=== PATIENT | female | born 1985 | race Caucasian/White ===

== ENCOUNTER 2018-08-29 19:07 | Inpatient (IN) | payer MEDICAID ==
[2018-08-29] MEDS ORDERED: LACTATED RINGER'S 1,000 ML IV (23:09)
[2018-08-29] MEDS ORDERED: METHYLERGONOVINE 0.2 MG INJ IM (23:30)
[2018-08-29] MEDS ORDERED: CARBOPROST 250 MCG INJ IM (23:30)
[2018-08-29] MEDS ORDERED: OXYTOCIN 30 UNITS/LR 500 ML IV (23:30)
[2018-08-29] MEDS ORDERED: LIDOCAINE 1% (MPF) 30 ML INJ INJ (23:30)
[2018-08-29] MEDS ORDERED: MISOPROSTOL 200 MCG TAB PR (23:30)
[2018-08-29] MEDS: LACTATED RINGER'S 1,000 ML IV (23:50)
[2018-08-30 01:19] LABS: ADD MAN DIFF? NO
[2018-08-30 01:27] LABS: BASOPHILS % 0.3 % (0.0-2.0); EOSINOPHILS # 0.1 10^3/ul (0.0-0.5); EOSINOPHILS % 1.1 % (0.0-7.0); HEMATOCRIT 38.3 % (37.0-47.0); HEMOGLOBIN 12.6 g/dl (12.0-16.0); LYMPHOCYTES # 1.9 10^3/ul (0.8-2.9); LYMPHOCYTES % 23.3 % (15.0-51.0); MEAN CORPUSCULAR HGB CONC 32.9 g/dl (32.0-37.0); MEAN CORPUSCULAR VOLUME 88.2 fl (82.0-101.0); MEAN PLATELET VOLUME 11.6 fl (7.4-10.4); MONOCYTE # 0.5 10^3/ul (0.3-0.9); MONOCYTES % 5.8 % (0.0-11.0); NEUTROPHIL # 5.5 10^3/ul (1.6-7.5); NEUTROPHILS % 68.7 % (39.0-77.0); PLATELET COUNT 221 10^3/UL (140-415); RED BLOOD COUNT 4.34 10^6/ul (4.20-5.40); RED CELL DISTRIBUTION WIDTH 14.7 % (11.5-14.5)
[2018-08-30 01:41] LABS: ALANINE AMINOTRANSFERASE 15 IU/L (13-69); ALBUMIN 3.6 g/dl (3.3-4.9); ALBUMIN/GLOBULIN RATIO 1.44; ALKALINE PHOSPHATASE 196 IU/L (42-121); ANION GAP 10 (5-13); ASPARTATE AMINO TRANSFERASE 22 IU/L (15-46); BILIRUBIN,INDIRECT 0.3 mg/dl (0-1.1); BILIRUBIN,TOTAL 0.3 mg/dl (0.2-1.3); BLOOD UREA NITROGEN 9 mg/dl (7-20); CALCIUM 8.8 mg/dl (8.4-10.2); CARBON DIOXIDE 21 mmol/L (21-31); CHLORIDE 106 mmol/L (97-110); CREATININE 0.43 mg/dl (0.44-1.00); Estimated GFR > 60 mL/min (>60); GLUCOSE 78 mg/dl (70-220); POTASSIUM 3.6 mmol/L (3.5-5.1); SODIUM 137 mmol/L (135-144); TOTAL PROTEIN 6.1 g/dl (6.1-8.1)
[2018-08-30 01:42] LABS: INR 0.91; PROTIME 12.3 Sec (11.9-14.9)
[2018-08-30 01:43] LABS: PARTIAL THROMBOPLASTIN TIME 28.3 Sec (23.0-35.0)
[2018-08-30 02:12] LABS: HEPATITIS B SURFACE ANTIGEN NEGATIVE (NEGATIVE)
[2018-08-30] MEDS: LACTATED RINGER'S 1,000 ML IV ×2 (02:22→06:52)
[2018-08-30] MEDS: BUTORPHANOL 2 MG INJ IV (02:43)
[2018-08-30] MEDS: OXYTOCIN 30 UNITS/LR 500 ML IV ×3 (09:25→22:21)
[2018-08-30] MEDS: IBUPROFEN 600 MG TAB PO ×3 (09:26→17:47)
[2018-08-30] MEDS ORDERED: ACETAMINOPHEN 325 MG TAB PO (10:30)
[2018-08-30] MEDS ORDERED: HYDROCODONE/APAP (5/325) TAB PO ×2 (10:30)
[2018-08-30] MEDS ORDERED: OXYCODONE/ASPIRIN (4.88/325) TAB PO ×2 (10:30)
[2018-08-30] MEDS: SENNA/DOCUSATE NA (8.6MG/50MG) TAB PO ×2 (10:30→21:00)
[2018-08-30 15:08] LABS: RAPID PLASMA REAGIN NONREACTIVE (NR)
[2018-08-30] MEDS: LANOLIN 7 GM TUBE TOP (21:51)
[2018-08-30] MEDS: BENZOCAINE 20% 56 ML SPRAY TOP (21:51)
[2018-08-30] MEDS: WITCH HAZEL/GLYCERIN PAD PR (21:51)
[2018-08-31 05:17] LABS: ADD MAN DIFF? NO
[2018-08-31 05:23] LABS: WHITE BLOOD COUNT 8.7 10^3/ul (4.8-10.8)
[2018-08-31 05:23] LABS: BASOPHILS % 0.2 % (0.0-2.0); EOSINOPHILS # 0.1 10^3/ul (0.0-0.5); HEMATOCRIT 37.2 % (37.0-47.0); HEMOGLOBIN 12.2 g/dl (12.0-16.0); LYMPHOCYTES # 1.7 10^3/ul (0.8-2.9); LYMPHOCYTES % 19.4 % (15.0-51.0); MEAN CORPUSCULAR HGB CONC 32.8 g/dl (32.0-37.0); MEAN CORPUSCULAR VOLUME 88.4 fl (82.0-101.0); MEAN PLATELET VOLUME 11.4 fl (7.4-10.4); MONOCYTE # 0.6 10^3/ul (0.3-0.9); MONOCYTES % 6.6 % (0.0-11.0); NEUTROPHIL # 6.2 10^3/ul (1.6-7.5); NEUTROPHILS % 72.2 % (39.0-77.0); PLATELET COUNT 212 10^3/UL (140-415); RED BLOOD COUNT 4.21 10^6/ul (4.20-5.40); RED CELL DISTRIBUTION WIDTH 14.6 % (11.5-14.5)
[2018-08-31] MEDS: IBUPROFEN 600 MG TAB PO ×5 (07:22→23:59)
[2018-08-31] MEDS: SENNA/DOCUSATE NA (8.6MG/50MG) TAB PO ×2 (09:05→21:42)
[2018-09-01] MEDS: IBUPROFEN 600 MG TAB PO ×2 (05:34→11:19)
[2018-09-01] MEDS: MEASLES,MUMPS,RUBELLA VACCINE INJ SC* (07:38)
[2018-09-01] MEDS: SENNA/DOCUSATE NA (8.6MG/50MG) TAB PO (08:40)
== END 2018-09-01 12:25 | disposition home or self-care (01) | DRG 807 ==
LOC: OBT 19:07 → L-D 08-30 07:18 → MS1 08-30 12:01 → OBT 23:05 → L-D 23:05
PROVIDERS: Obstetrics & Gynecology
PROC: 10E0XZZ Delivery of Products of Conception, External Approach (ICD-10-PCS; principal; 2018-08-29)
PROC: 0HQ9XZZ Repair Perineum Skin, External Approach (ICD-10-PCS; 2018-08-29)
DX: O24.429 Gestational diabetes mellitus in childbirth, unspecified control (principal); O70.0 First degree perineal laceration during delivery; Z37.0 Single live birth; Z3A.40 40 weeks gestation of pregnancy
CPT/HCPCS: 36415; 76815; 76818; 80053; 82962; 85025; 85610; 85730; 86592; 86850; 86900; 86901; 87340